=== PATIENT | female | born 1995 | race Caucasian/White ===

== ENCOUNTER 2020-11-09 11:09 | Emergency (ER) | payer OTHER ==
[~2020-11-09] VITALS: Ht 160 cm; Wt 73.8 kg
[2020-11-09 11:22] VITALS: BP 125/71
--- NOTE | 2020-11-09 11:24 | ED Back Pain ---
General Chief Complaint: Back Problems Stated Complaint: KIDNEY PAIN History of Present Illness Date Seen by Provider: Nov 09, 2020 Time Seen by Provider: 11:24 Initial Comments 25-year-old female presents with low back pain for the past 1 week. No pain with urination, no blood in her urine, however she does have a history of kidney infections, the last being 2 years ago. She denies any abdominal pain, some lower abdominal discomfort. Denies fever chills, nausea or vomiting. Denies any back injury Allergies and Home Medications Allergies Coded Allergies: No Known Drug Allergies (Unverified , 11/09/20) Patient Home Medication List Home Medication List Reviewed: Yes Review of Systems Constitutional: see HPI; No chills, No fever, No malaise, No weakness Respiratory: No cough, No short of breath Cardiovascular: No chest pain, No edema, No palpitations Gastrointestinal: No abdominal pain, No loss of appetite, No nausea, No vomiting Genitourinary: see HPI; No dysuria, No frequency, No hematuria, No hesitancy, No incontinence, No nocturia Musculoskeletal: back pain (b/l flank R >> L) Skin: No change in color Past [id number] Hx Past Med/Social Hx: Reviewed Nursing Past Med/Soc Hx Physical Exam Vital Signs Vital Signs - First Documented 11/09/20 11:22 Temp 36.6 Pulse 63 Resp 16 B/P (MAP) 125/71 (89) Pulse Ox 98 O2 Delivery Room Air Capillary Refill : Height, Weight, BMI Height: '" Weight: lbs. oz. kg; BMI Method: General Appearance: No Apparent Distress, WD/WN Cardiovascular: Regular Rate, Rhythm, No Edema, No Gallop, No JVD Respiratory: Chest Non Tender, Lungs Clear, Normal Breath Sounds Gastrointestinal: Normal Bowel Sounds, No Organomegaly, Non Tender, Soft Back: Normal Inspection, No Vertebral Tenderness, CVA Tenderness (L), CVA Tenderness (R) Extremity: Normal Capillary Refill, Non Tender Neurologic/Psychiatric: Alert, Oriented x3, No Motor/Sensory Deficits, Normal Mood/Affect Progress/Results/Core Measures Results/Orders Lab Results Laboratory Tests Test 11/09/20 11:14 Range/Units Urine Color YELLOW Urine Clarity CLEAR Urine pH 6.0 5-9 Urine Specific [place] 4.015 1.016-1.022 Urine Protein NEGATIVE NEGATIVE Urine Glucose (UA) NEGATIVE NEGATIVE Urine Ketones NEGATIVE NEGATIVE Urine Nitrite NEGATIVE NEGATIVE Urine Bilirubin NEGATIVE NEGATIVE Urine Urobilinogen 0.2 < = 1.0 MG/DL Urine Leukocyte Esterase NEGATIVE NEGATIVE Urine RBC (Auto) NEGATIVE NEGATIVE Urine RBC NONE /HPF Urine WBC 0-2 /HPF Urine Squamous Epithelial Cells 0-2 /HPF Urine Crystals NONE /LPF Urine Bacteria NEGATIVE /HPF Urine Casts NONE /LPF Urine Mucus NEGATIVE /LPF Urine Culture Indicated NO My Orders Orders - ROVENSTINEMEÑO L DO Ua Culture If Indicated (11/09/20 11:12) Vital Signs/I&O 11/09/20 11:22 Temp 36.6 Pulse 63 Resp 16 B/P (MAP) 125/71 (89) Pulse Ox 98 O2 Delivery Room Air Departure Impression Primary Impression: Back strain Qualified Codes: S39.012A - Strain of muscle, fascia and tendon of lower back, initial encounter Disposition: HOME, SELF-CARE Condition: Stable Departure-Patient Inst. Decision time for Depature: 11:31 Referrals: [facility]/ (PCP) Primary Care Physician ROMAN HILLS APRN (Family) Primary Care Physician Patient Instructions: Back Muscle Strain (DC) Add. Discharge Instructions: See [facility] in 1 week if you are not feeling better. Return to the ER sooner if worse. All discharge instructions reviewed with patient and/or family. Voiced understanding. Scripts Ibuprofen (Ibuprofen) 800 Mg Tablet 800 MG PO Q8H PRN for PAIN, #30 TAB 0 Refills Prov: ROVENSTINE,MEÑO L DO 11/09/20 Cyclobenzaprine HCl (Cyclobenzaprine HCl) 10 Mg Tablet 10 MG PO Q8H PRN for SPASMS, #15 TAB 0 Refills Prov: ROVENSTINE,MEÑO L DO 11/09/20 ROVENSTINE,MEÑO L DO Nov 09, 2020 11:24
[2020-11-09 11:28] LABS: CLARITY,URINE CLEAR; COLOR,URINE YELLOW; GLUCOSE, URINE (UA) NEGATIVE (NEGATIVE); PROTEIN,URINE NEGATIVE (NEGATIVE)
[2020-11-09 11:29] LABS: BACTERIA,URINE NEGATIVE /HPF; BILIRUBIN,URINE NEGATIVE (NEGATIVE); KETONES,URINE NEGATIVE (NEGATIVE); LEUKOCYTE ESTERASE ,URINE NEGATIVE (NEGATIVE); NITRITE,URINE NEGATIVE (NEGATIVE); SQUAMOUS EPITHELIAL CELL,UR 0-2 /HPF; WBC,URINE 0-2 /HPF
[2020-11-09] MEDS ORDERED: IBUP-1780 PO (11:37)
[2020-11-09] MEDS ORDERED: CYCL10TA9 PO (11:37)
== END 2020-11-09 11:43 | disposition home or self-care (01) ==
LOC: ER FS 11:11
DX: S39.012A Strain of muscle, fascia and tendon of lower back, initial encounter (principal); X58.XXXA Exposure to other specified factors, initial encounter
CPT/HCPCS: 81000; 99282